=== PATIENT | female | born 1990 | race Hispanic/Latino ===

== ENCOUNTER 2017-06-04 19:47 | Emergency (ER) | payer SELFPAY ==
[2017-06-04] MEDS ORDERED: CEFTRIAXONE SODIUM 1 GM ONE (20:24)
[2017-06-04] MEDS ORDERED: LIDOCAINE HCL-MPF 1% 2ML VIAL ONE (20:24)
== END 2017-06-04 21:16 | disposition home or self-care (01) ==
LOC: EDH 19:47
DX: K08.89 Other specified disorders of teeth and supporting structures (principal)
CPT/HCPCS: 96372; 99283; J0696; J3490

== ENCOUNTER 2019-04-28 21:59 | Emergency (ER) | payer MEDICAID, OTHER ==
[2019-04-28 22:20] LABS: BASOPHILS % (AUTO) 0.6 % (0.0-5.0); EOSINOPHILS % (AUTO) 0.1 % (0.0-8.0); HEMATOCRIT 36.8 % (36-48); LYMPHOCYTES % (AUTO) 33.7 % (21.0-51.0); MEAN CORPUSCULAR HGB CONC 32.9 g/dL (32.0-36.0); MEAN CORPUSCULAR VOLUME 82.1 fL (79-99); MONOCYTES % (AUTO) 6.5 % (3.0-13.0); NEUTROPHILS % (AUTO) 58.7 % (40.0-77.0); PLATELET COUNT (AUTO) 323 K/uL (130-400); RED BLOOD CELL COUNT(AUTO) 4.48 MIL/uL (4.00-5.50); RED CELL DISTRIBUTION WIDTH 13.2 % (11.0-15.5); WHITE BLOOD COUNT (AUTO) 11.3 K/uL (4.8-10.8)
[2019-04-28 22:31] LABS: APPEARANCE,URINE Clear (CLEAR); BILIRUBIN,URINE Negative (NEGATIVE); COLOR,URINE Yellow (YELLOW); GLUCOSE, URINE (UA) Negative (NEGATIVE); KETONES,URINE Negative (NEGATIVE); LEUKOCYTE ESTERASE ,URINE Small (NEGATIVE); NITRATE,URINE Negative (NEGATIVE); OCCULT BLOOD,URINE Negative (NEGATIVE); PROTEIN,URINE Negative (NEGATIVE); UROBILINOGEN,URINE 0.2 mg/dL (0.2-1.0)
[2019-04-28 22:38] LABS: CREATININE 0.8 mg/dL (0.5-1.5); POTASSIUM 3.8 mmol/L (3.5-5.1)
[2019-04-28 22:40] LABS: AMPHET/METH SCREEN,URINE NEGATIVE (NEGATIVE); BARBITURATE SCREEN, URINE NEGATIVE (NEGATIVE); BENZODIAZEPINES SCREEN,URINE POSITIVE (NEGATIVE); CANNABINOID SCREEN,URINE NEGATIVE (NEGATIVE); COCAINE SCREEN,URINE POSITIVE (NEGATIVE); OPIATE SCREEN,URINE NEGATIVE (NEGATIVE); PHENCYCLIDINE SCREEN,URINE NEGATIVE (NEGATIVE)
[2019-04-28 22:41] LABS: ALBUMIN 4.1 g/dL (3.5-5.0); BILIRUBIN,TOTAL 0.3 mg/dL (0.2-1.0); TOTAL PROTEIN, SERUM 7.9 g/dL (6.0-8.3)
[2019-04-28 22:43] LABS: HCG,QUAL RESULT POSITIVE (NEGATIVE)
[2019-04-28 22:55] LABS: BACTERIA,URINE Rare /HPF (None Seen); MUCUS,URINE Few LPF (None Seen); RBC,URINE None Seen /HPF (0-1); SQUAMOUS EPITHELIAL CELL,UR Moderate /HPF (0-2)
== END 2019-04-29 01:03 | disposition home or self-care (01) ==
LOC: EDH 21:59
DX: O99.321 Drug use complicating pregnancy, first trimester (principal); F19.10 Other psychoactive substance abuse, uncomplicated; M54.5 Low back pain; Z3A.01 Less than 8 weeks gestation of pregnancy; Z72.0 Tobacco use
CPT/HCPCS: 36415; 76801; 80053; 80305; 81001; 81025; 84702; 85025

== ENCOUNTER 2019-09-21 11:50 | Observation (INO) | payer MEDICAID ==
[~2019-09-21] VITALS: Ht 160 cm; Wt 80.7 kg
[2019-09-21] MEDS ORDERED: CELESTONE SOLUSPAN 6 MG/ML 5ML VIAL IM SCH (12:30)
[2019-09-21 12:55] LABS: APPEARANCE,URINE Clear (CLEAR); BILIRUBIN,URINE Negative (NEGATIVE); COLOR,URINE Yellow (YELLOW); GLUCOSE, URINE (UA) Negative (NEGATIVE); KETONES,URINE Negative (NEGATIVE); LEUKOCYTE ESTERASE ,URINE Trace (NEGATIVE); NITRATE,URINE Negative (NEGATIVE); OCCULT BLOOD,URINE Negative (NEGATIVE); PROTEIN,URINE Negative (NEGATIVE)
[2019-09-21 13:01] LABS: BACTERIA,URINE Rare /HPF (None Seen); RBC,URINE 0-1 /HPF (0-1); SQUAMOUS EPITHELIAL CELL,UR Rare /HPF (0-2); WBC,URINE 0-1 /HPF (0-1)
[2019-09-21 14:19] LABS: HEMATOCRIT 30.4 % (36-48); MEAN CORPUSCULAR HEMOGLOBIN 29.2 pg (27.0-33.0); MEAN CORPUSCULAR HGB CONC 33.9 g/dL (32.0-36.0); MEAN CORPUSCULAR VOLUME 86.1 fL (79-99); RED BLOOD CELL COUNT(AUTO) 3.53 MIL/uL (4.00-5.50); WHITE BLOOD COUNT (AUTO) 10.7 K/uL (4.8-10.8)
[2019-09-21 14:33] LABS: AMPHET/METH SCREEN,URINE NEGATIVE (NEGATIVE); BARBITURATE SCREEN, URINE NEGATIVE (NEGATIVE); BENZODIAZEPINES SCREEN,URINE NEGATIVE (NEGATIVE); CANNABINOID SCREEN,URINE NEGATIVE (NEGATIVE); COCAINE SCREEN,URINE NEGATIVE (NEGATIVE); OPIATE SCREEN,URINE NEGATIVE (NEGATIVE); PHENCYCLIDINE SCREEN,URINE NEGATIVE (NEGATIVE)
[2019-09-21 14:53] LABS: CREATININE 0.6 mg/dL (0.5-1.5); POTASSIUM 3.8 mmol/L (3.5-5.1)
[2019-09-21 14:57] LABS: ALBUMIN 2.9 g/dL (3.5-5.0); BILIRUBIN,TOTAL 0.2 mg/dL (0.2-1.0)
== END 2019-09-21 15:15 | disposition home or self-care (01) ==
LOC: LDH 11:50
PROVIDERS: ADMIT Obstetrics & Gynecology; ATTEND Obstetrics & Gynecology
DX: O60.02 Preterm labor without delivery, second trimester (principal); Z3A.23 23 weeks gestation of pregnancy
CPT/HCPCS: 36415; 76805; 76857; 80053; 80305; 81001; 85027; 86701; 87390; 96372; G0378 ×3; J0702

== ENCOUNTER 2019-09-22 14:41 | Observation (INO) | payer MEDICAID ==
[~2019-09-22] VITALS: Ht 160 cm; Wt 58.1 kg
[2019-09-22] MEDS ORDERED: CELESTONE SOLUSPAN 6 MG/ML 5ML VIAL IM SCH (15:00)
== END 2019-09-22 15:16 | disposition home or self-care (01) ==
LOC: LDH 14:41
PROVIDERS: ADMIT Obstetrics & Gynecology; ATTEND Obstetrics & Gynecology
DX: Z34.92 Encounter for supervision of normal pregnancy, unspecified, second trimester (principal); Z3A.23 23 weeks gestation of pregnancy
CPT/HCPCS: 96372; G0378

== ENCOUNTER 2019-12-22 22:11 | Inpatient (IN) | payer MEDICAID ==
[~2019-12-22] VITALS: Ht 160 cm; Wt 69.9 kg
[2019-12-22] MEDS ORDERED: LACTATED RINGERS 1000ML 1,000 ML IV PRN (22:16)
[2019-12-22 22:58] LABS: APPEARANCE,URINE Clear (CLEAR); BILIRUBIN,URINE Negative (NEGATIVE); COLOR,URINE Yellow (YELLOW); GLUCOSE, URINE (UA) Negative (NEGATIVE); KETONES,URINE Negative (NEGATIVE); LEUKOCYTE ESTERASE ,URINE Large (NEGATIVE); NITRATE,URINE Negative (NEGATIVE); OCCULT BLOOD,URINE Moderate (NEGATIVE); PROTEIN,URINE Negative (NEGATIVE)
[2019-12-22 23:22] LABS: BACTERIA,URINE Few /HPF (None Seen)
[2019-12-23 00:10] LABS: HEMATOCRIT 32.2 % (36-48); MEAN CORPUSCULAR HEMOGLOBIN 29.7 pg (27.0-33.0); MEAN CORPUSCULAR HGB CONC 34.2 g/dL (32.0-36.0); RED BLOOD CELL COUNT(AUTO) 3.7 MIL/uL (4.00-5.50); RED CELL DISTRIBUTION WIDTH 12.7 % (11.0-15.5); WHITE BLOOD COUNT (AUTO) 9.8 K/uL (4.8-10.8)
[2019-12-23] MEDS ORDERED: OXYTOCIN-LR 20 UNITS/1000 ML 1,000 ML IV ONE (00:25)
[2019-12-23] MEDS ORDERED: MEPERIDINE-PF 50 MG/ML SYG ONE (02:12)
[2019-12-23] MEDS ORDERED: MEPERIDINE-PF 50 MG/ML SYG IVP PRN (02:15)
[2019-12-23] MEDS ORDERED: PROMETHAZINE HCL 25 MG/ML 1ML AMPULE IM PRN (02:15)
[2019-12-23] MEDS ORDERED: LIDOCAINE HCL 1% 20 ML VIAL ONE (03:46)
[2019-12-23] MEDS ORDERED: LANOLIN 30GM OINTMENT TP PRN (06:30)
[2019-12-23] MEDS ORDERED: DIPH,PERTUSS(ACELL),TET VAC/PF 0.5 ML VIAL IM PRN (06:30)
[2019-12-23] MEDS ORDERED: WITCH HAZEL 1 PAD TP PRN (06:30)
[2019-12-23] MEDS ORDERED: BENZOCAINE/LANOLIN/ALOE VERA 60 ML AEROSOL TP PRN (06:30)
[2019-12-23] MEDS ORDERED: ACETAMINOPHEN-CODEINE 300/30MG TAB PO PRN (06:30)
[2019-12-23] MEDS ORDERED: OXYTOCIN-LR 20 UNITS/1000 ML 1,000 ML IV SCH (06:30)
[2019-12-23] MEDS: IBUPROFEN 600 MG TABLET PO PRN ×2 (06:33→13:33)
[2019-12-23] MEDS ORDERED: OXYTOCIN 10 USP UNITS/ML 20 UNIT in LACTATED RINGERS 1000ML 1,000 ML IV SCH (07:00)
[2019-12-23 09:26] VITALS: BP 121/79
[2019-12-23] MEDS ORDERED: PNV1TABL17 PO (10:42)
[2019-12-23 11:30] VITALS: BP 133/82
[2019-12-23 16:17] VITALS: BP 139/79
[2019-12-23 19:41] VITALS: BP 109/70
[2019-12-23] MEDS: DOCUSATE SODIUM 100 MG CAP PO SCH ×2 (20:30→21:00)
[2019-12-24 00:07] VITALS: BP 119/77
[2019-12-24] MEDS: IBUPROFEN 600 MG TABLET PO PRN ×2 (01:10→09:15)
[2019-12-24 03:00] VITALS: BP 128/79
[2019-12-24 07:20] VITALS: BP 126/76
[2019-12-24] MEDS: DOCUSATE SODIUM 100 MG CAP PO SCH (09:14)
--- NOTE | 2019-12-24 10:30 | NUR ---
DR. HARTLEY CALLED AND INDICATED PATIENT COULD BE DISCHARGED AND FOLLOW UP IN CLINIC IN 2-3 WEEKS.
[2019-12-24 11:01] VITALS: BP 132/94
--- NOTE | 2019-12-24 11:10 | NUR ---
DISCHARGE INSTRUCTIONS GIVEN SINCE BABY IS DISCHARGED AND PATIENT WAS GIVE SCRIPT FOR COLACE AND MOTRIN AND INSTRUCTED TO CALL THURSDAY, FOR FOLLOW UP APPOINTMENT IN 2-3 WEEKS. VERBALIZED UNDERSTANDING INSTRUCTIONS GIVEN.
--- NOTE | 2019-12-24 12:05 | NUR ---
PATIENT WAS TAKEN VIA W/C CARRYING BABY IN ARMS AND TO FAMILY VEHICLE AND WAS DISCHARGED TO FAMILY IN STABLE CONDITION. PATIENT IS STABLE AND DENIES PAIN.
[2019-12-24 12:10] LABS: HEPATITIS Bs ANTIGEN SCREEN P Negative (Negative)
== END 2019-12-24 12:05 | disposition home or self-care (01) | DRG 560 ==
LOC: LDH 22:11 → WSH 12-23 09:21
PROVIDERS: ADMIT Obstetrics & Gynecology; ATTEND Obstetrics & Gynecology
PROC: 10E0XZZ Delivery of Products of Conception, External Approach (ICD-10-PCS; principal; 2019-12-23)
PROC: 0KQM0ZZ Repair Perineum Muscle, Open Approach (ICD-10-PCS; 2019-12-23)
PROC: 10907ZC Drainage of Amniotic Fluid, Therapeutic from Products of Conception, Via Natural or Artificial Opening (ICD-10-PCS; 2019-12-23)
PROC: 4A1HXCZ Monitoring of Products of Conception, Cardiac Rate, External Approach (ICD-10-PCS; 2019-12-23)
PROC: 3E0234Z Introduction of Serum, Toxoid and Vaccine into Muscle, Percutaneous Approach (ICD-10-PCS; 2019-12-23)
DX: O70.1 Second degree perineal laceration during delivery (principal); Z23 Encounter for immunization; Z37.0 Single live birth; Z3A.38 38 weeks gestation of pregnancy
CPT/HCPCS: 36415; 81001; 85027; 86592; 86850; 86900; 86901; 87088; 87340; G0378; J2175; J2590

== ENCOUNTER 2020-02-17 06:16 | Day surgery (SDC) | payer MEDICAID ==
[2020-02-14 16:03] LABS: BASOPHILS % (AUTO) 0.5 % (0.0-5.0); EOSINOPHILS % (AUTO) 0.6 % (0.0-8.0); HEMATOCRIT 36.6 % (36-48); LYMPHOCYTES % (AUTO) 40.3 % (21.0-51.0); MEAN CORPUSCULAR HEMOGLOBIN 28.2 pg (27.0-33.0); MEAN CORPUSCULAR HGB CONC 32.5 g/dL (32.0-36.0); MEAN CORPUSCULAR VOLUME 86.7 fL (79-99); NEUTROPHILS % (AUTO) 50.4 % (40.0-77.0); PLATELET COUNT (AUTO) 346 K/uL (130-400); RED BLOOD CELL COUNT(AUTO) 4.22 MIL/uL (4.00-5.50); WHITE BLOOD COUNT (AUTO) 8.3 K/uL (4.8-10.8)
[2020-02-16 10:07] VITALS: BP 116/69
[~2020-02-17] VITALS: Ht 162.6 cm; Wt 66.2 kg
[2020-02-17] VITALS (18 sets, daily range): BP systolic 125–140; BP diastolic 74–90
[~2020-02-17 06:16] MED LIST: CEFAZOLIN SODIUM 1 GM VIAL IVP SCH; PNV1TABL17 PO
[2020-02-17] MEDS ORDERED: LACTATED RINGERS 1000ML 1,000 ML IV ONE (06:24)
[2020-02-17] MEDS ORDERED: BUPIVACAINE/PF 0.25% 30ML VIAL IJ ONE (06:43)
[2020-02-17] MEDS ORDERED: SUCCINYLCHOLINE CHLORIDE 20 MG/ML 10 ML VIAL ONE (07:09)
[2020-02-17] MEDS ORDERED: LIDOCAINE PF 2% 5ML ABBOJECT ONE (07:09)
[2020-02-17] MEDS ORDERED: FENTANYL CITRATE PF 50 MCG/1 ML 2ML VIAL ONE (07:10)
[2020-02-17] MEDS ORDERED: ROCURONIUM 10MG/1ML SYR 10 MG/ML ML ONE (07:10)
[2020-02-17] MEDS ORDERED: PROPOFOL 10 MG/ML 20ML VIAL IV ONE (07:10)
[2020-02-17] MEDS ORDERED: MIDAZOLAM HCL 1 MG/ML 2ML VIAL ONE (07:25)
[2020-02-17] MEDS ORDERED: ESMOLOL HCL 10 MG/ML 10 ML VIAL ONE ×2 (08:11→08:47)
[2020-02-17] MEDS ORDERED: NEOSTIGMINE 5MG/5ML SYR IV ONE (08:16)
[2020-02-17] MEDS ORDERED: GLYCOPYRROLATE 1 MG/5 ML SYRINGE ONE (08:16)
[2020-02-17] MEDS ORDERED: ONDANSETRON HCL 4 MG/2 ML VIAL ONE ×3 (08:17→08:52)
[2020-02-17] MEDS ORDERED: KETOROLAC TROMETHAMINE 30MG/ML ONE (08:17)
[2020-02-17] MEDS ORDERED: MEPERIDINE-PF 25 MG/ML SYG ONE ×2 (08:34→08:45)
--- NOTE | 2020-02-17 09:30 | NUR ---
post received pt back from sx, s/p lab btl. pt awake and alert in bed,no distress noted. vs stable on arrival. dermabond incisions x 2 asymptomatic. one to belly button and 1 to suprapubic area. open to air. plan of care discuss with patient
--- NOTE | 2020-02-17 10:20 | NUR ---
dc pt dc home via wc,no distress noted. pt slightly nauseated. fully awake , pt accompanied by spouse.
== END 2020-02-17 10:20 | disposition home or self-care (01) ==
LOC: DAH 06:16
PROVIDERS: ATTEND Obstetrics & Gynecology
DX: Z30.2 Encounter for sterilization (principal); Z20.828 Contact with and (suspected) exposure to other viral communicable diseases; N81.4 Uterovaginal prolapse, unspecified; Z90.49 Acquired absence of other specified parts of digestive tract
CPT/HCPCS: 36415 ×2; 58671; 84703; 85025; 86850 ×2; 86900 ×2; 86901 ×2; A4264; A4351; A4606; A4930; C1769 ×2; G0168; J0330; J0690; J1885; J2001; J2175 ×2; J2250; J2405 ×3; J2704; J2710; J3010; J3490 ×3; J7120 ×2; U0003

== ENCOUNTER 2022-09-20 19:17 | Emergency (ER) | payer MEDICAID ==
[~2022-09-20] VITALS: Ht 160 cm; Wt 65.1 kg
[2022-09-20] MEDS ORDERED: KETOROLAC 15MG/ML VIAL (15MG/ML) IV ONE (20:00)
[2022-09-20] MEDS ORDERED: CYCLOBENZAPRINE HCL 10 MG TABLET PO ONE (20:00)
[2022-09-20 20:18] LABS: BASOPHILS % (AUTO) 0.7 % (0.0-5.0); EOSINOPHILS % (AUTO) 0.4 % (0.0-8.0); HEMATOCRIT 34.6 % (36-48); LYMPHOCYTES % (AUTO) 48.4 % (21.0-51.0); MEAN CORPUSCULAR HEMOGLOBIN 27.9 pg (27.0-33.0); MEAN CORPUSCULAR HGB CONC 33.8 g/dL (32.0-36.0); MEAN CORPUSCULAR VOLUME 82.4 fL (79-99); MONOCYTES % (AUTO) 5.9 % (3.0-13.0); NEUTROPHILS % (AUTO) 44.4 % (40.0-77.0); PLATELET COUNT (AUTO) 311 K/uL (130-400); RED CELL DISTRIBUTION WIDTH 12.2 % (11.0-15.5); WHITE BLOOD COUNT (AUTO) 8.9 K/uL (4.8-10.8)
[2022-09-20 20:26] LABS: CARBON DIOXIDE 29 mmol/L (21-32); CHLORIDE 101 mmol/L (101-111); CREATININE 0.7 mg/dL (0.5-1.5); GLOMERULAR FILTR. RATE CALC 118 mL/min (>90); GLUCOSE,RANDOM 90 mg/dL (70-105); POTASSIUM 3.5 mmol/L (3.5-5.1); SODIUM SERUM 136 mmol/L (136-145); UREA NITROGEN, BLOOD 13 mg/dL (7-18)
[2022-09-20 20:27] LABS: APPEARANCE,URINE CLEAR (CLEAR); BILIRUBIN,URINE NEGATIVE (NEGATIVE); COLOR,URINE LIGHT-YELLOW (YELLOW); GLUCOSE, URINE (UA) NEGATIVE (NEGATIVE); KETONES,URINE NEGATIVE (NEGATIVE); LEUKOCYTE ESTERASE ,URINE NEGATIVE Leu/uL (NEGATIVE); NITRATE,URINE NEGATIVE (NEGATIVE); OCCULT BLOOD,URINE NEGATIVE (NEGATIVE); PH,URINE 6.5 (5.0-8.0); PROTEIN,URINE NEGATIVE (NEGATIVE); UROBILINOGEN,URINE 0.2 mg/dL (0.2-1.0)
[2022-09-20 20:30] LABS: BACTERIA,URINE RARE /HPF (None Seen); HCG,QUALITATIVE URINE NEGATIVE (NEGATIVE); MUCUS,URINE RARE LPF (None Seen); SQUAMOUS EPITHELIAL CELL,UR RARE /HPF (0-2)
[2022-09-20 20:30] LABS: ALANINE AMINOTRANSFERASE 19 U/L (12-78); ALBUMIN 3.9 g/dL (3.5-5.0); ASPARTATE AMINOTRANSFERASE 13 U/L (10-37); TOTAL PROTEIN, SERUM 7.4 g/dL (6.0-8.3)
[2022-09-20 20:32] LABS: CRP QUANTITATIVE < 2.00 mg/L (0.00-9.0)
[2022-09-20 20:44] LABS: AMPHET/METH SCREEN,URINE NEGATIVE (NEGATIVE); BARBITURATE SCREEN, URINE NEGATIVE (NEGATIVE); BENZODIAZEPINES SCREEN,URINE POSITIVE (NEGATIVE); CANNABINOID SCREEN,URINE NEGATIVE (NEGATIVE); COCAINE SCREEN,URINE NEGATIVE (NEGATIVE); OPIATE SCREEN,URINE NEGATIVE (NEGATIVE); PHENCYCLIDINE SCREEN,URINE NEGATIVE (NEGATIVE)
[2022-09-20] MEDS ORDERED: DiphenhydrAMINE HCL 50 MG/ML VIAL IV ONE (22:00)
[2022-09-20] MEDS ORDERED: DIPHENHYDRAMINE HCL 25 MG CAPSULE PO ONE (22:00)
[2022-09-20] MEDS ORDERED: IBUP-1493 PO (22:08)
[2022-09-20] MEDS ORDERED: HYDR50CA PO (22:08)
[2022-09-20 22:27] VITALS: BP 127/62
== END 2022-09-20 22:30 | disposition home or self-care (01) ==
LOC: EDH 19:17
DX: F41.9 Anxiety disorder, unspecified (principal); M79.10 Myalgia, unspecified site; M79.605 Pain in left leg
CPT/HCPCS: 99285; 96374; 70450; 80053; 80305; 85025; 86038; 86140; 81025; 36415; 72100; 81001; Q0163; J1885; 96372

== ENCOUNTER 2023-06-13 21:52 | Emergency (ER) | payer BC, MEDICAID ==
[~2023-06-13] VITALS: Ht 160 cm; Wt 63.5 kg
[~2023-06-13 21:52] MED LIST changes: -CEFAZOLIN SODIUM 1 GM VIAL IVP SCH; +HYDR50CA PO; +IBUP-1493 PO; -PNV1TABL17 PO
[2023-06-13 22:40] LABS: BASOPHILS # (AUTO) 0.03 K/uL (0.00-0.20); BASOPHILS % (AUTO) 0.3 % (0.0-5.0); EOSINOPHILS # (AUTO) 0.05 K/uL (0.00-0.70); EOSINOPHILS % (AUTO) 0.5 % (0.0-8.0); HEMATOCRIT 34.2 % (36-48); IMMATURE GRANULOCYTE ABSOLUTE 0.03 K/uL (0-1); LYMPHOCYTES # (AUTO) 4.1 K/uL (1.0-4.8); LYMPHOCYTES % (AUTO) 42.4 % (21.0-51.0); MEAN CORPUSCULAR HEMOGLOBIN 28.1 pg (27.0-33.0); MEAN CORPUSCULAR HGB CONC 33.6 g/dL (32.0-36.0); MEAN CORPUSCULAR VOLUME 83.6 fL (79-99); MONOCYTES # (AUTO) 0.9 K/uL (0.1-1.0); MONOCYTES % (AUTO) 8.8 % (3.0-13.0); NEUTROPHILS # (AUTO) 4.6 K/uL (1.8-7.7); NEUTROPHILS % (AUTO) 47.7 % (40.0-77.0); PLATELET COUNT (AUTO) 297 K/uL (130-400); RED BLOOD CELL COUNT(AUTO) 4.09 MIL/uL (4.00-5.50); RED CELL DISTRIBUTION WIDTH 12.6 % (11.0-15.5); WHITE BLOOD COUNT (AUTO) 9.7 K/uL (4.8-10.8)
[2023-06-13 22:42] LABS: APPEARANCE,URINE CLEAR (CLEAR); BILIRUBIN,URINE NEGATIVE (NEGATIVE); COLOR,URINE LIGHT-YELLOW (YELLOW); GLUCOSE, URINE (UA) NEGATIVE (NEGATIVE); KETONES,URINE NEGATIVE (NEGATIVE); LEUKOCYTE ESTERASE ,URINE NEGATIVE Leu/uL (NEGATIVE); NITRATE,URINE NEGATIVE (NEGATIVE); OCCULT BLOOD,URINE NEGATIVE (NEGATIVE); PH,URINE 6.5 (5.0-8.0); PROTEIN,URINE NEGATIVE (NEGATIVE); UROBILINOGEN,URINE 0.2 mg/dL (0.2-1.0)
[2023-06-13 22:43] LABS: HCG,QUALITATIVE URINE NEGATIVE (NEGATIVE)
[2023-06-13 22:44] LABS: ADD UA MICROSCOPIC NO
[2023-06-13 22:51] LABS: CREATININE 0.9 mg/dL (0.5-1.5); POTASSIUM 3.7 mmol/L (3.5-5.1)
[2023-06-13 22:55] LABS: ALBUMIN 3.7 g/dL (3.5-5.0); BILIRUBIN,TOTAL 0.2 mg/dL (0.2-1.0); TOTAL PROTEIN, SERUM 7.4 g/dL (6.0-8.3)
[2023-06-14] MEDS ORDERED: POLY17PO4 PO (02:08)
[2023-06-14] MEDS: MAGNESIUM HYDROXIDE 30 ML/UDCUP PO SCH (02:25)
[2023-06-14 02:40] VITALS: BP 121/71; PULSE 91; RESP 16; O2SAT 100
== END 2023-06-14 02:40 | disposition home or self-care (01) ==
LOC: EDH 21:52
DX: R10.13 Epigastric pain (principal); K59.00 Constipation, unspecified; F41.9 Anxiety disorder, unspecified; Z90.49 Acquired absence of other specified parts of digestive tract
CPT/HCPCS: 36415; 71045; 74176; 76705; 80053; 81003; 81025; 83690; 84484; 85025; 93005

== ENCOUNTER 2024-07-23 09:20 | Emergency (ER) | payer BC ==
[~2024-07-23] VITALS: Ht 160 cm; Wt 63.5 kg
[~2024-07-23 09:20] MED LIST changes: +POLY17PO4 PO
[2024-07-23 09:22] VITALS: BP 124/85; PULSE 110; RESP 18; TEMP 99.4; O2SAT 98
[2024-07-23 10:08] LABS: RAPID GROUP A STREP negative (NEGATIVE)
[2024-07-23 10:12] LABS: SARS-CoV-2, RNA, NAAT NEGATIVE SARS CoV-2 (NEGATIVE)
[2024-07-23 10:18] LABS: INFLUENZA TYPE A Negative For Type A (NEGATIVE)
[2024-07-23 11:21] LABS: INFLUENZA TYPE B Positive For Type B (NEGATIVE)
[2024-07-23] MEDS ORDERED: ACET-66 PO (11:48)
[2024-07-23] MEDS ORDERED: OSEL75 PO (11:48)
--- NOTE | 2024-07-23 11:48 | ERN ---
General Chief Complaint: Influenza Stated Complaint: FLU SYMPTOMS X 4 DAYS Time Seen by MD: 09:22 Source: patient History of Present Illness Initial Comments Patient is a 33-year-old female coming in to be evaluated for URI symptoms. Per patient she feels as he has she has a flu her son was experiencing similar symptoms with diagnosed with the flu a week and a half ago he finished the Tamiflu. Allergies: Coded Allergies: No Known Allergies (Unverified Allergy, Unknown, 09/21/19) Home Meds Active Scripts Polyethylene Glycol 3350 (Miralax) 17 Gram Powd.pack, 17 GM PO DAILY PRN for CONSTIPATION, #10 DOSE Prov:TRAM WILLIAMSON MD 06/14/23 Hydroxyzine Pamoate (Vistaril) 50 Mg Capsule, 50 MG PO Q6HPRN PRN for anxiety, #15 CAP Prov:OLI WINTER MD 09/20/22 Ibuprofen (Motrin/Advil) 800 Mg Tab, 800 MG PO Q8H, #12 TAB Prov:OLI WINTER MD 09/20/22 Past Medical History Past Medical History: Anxiety Past Surgical History: Appendectomy, BTL Family History Family History: Negative Social History Social History: Negative, Lives with family Female( History) LMP: Jul 11, 2024 ROS Dictation CONSTITUTIONAL: chills, no fever, no weakness, no diaphoresis, no malaise. HEAD/FACE: No signs of trauma. EENT: No eye pain, no blurred vision, no tearing, no double vision, no ear pain, no ear discharge, no nose pain, no nasal congestion, no throat pain, no throat swelling, no mouth pain. RESPIRATORY: No cough, no orthopnea, no SOB, no stridor, no wheezing. CARDIOVASCULAR: No chest pain, no edema, no palpitations, no syncope. GASTROINTESTINAL/ABDOMINAL: No abdominal pain, no constipation, no diarrhea, no nausea, no vomiting. GENITOURINARY: No abnormal discharge, no dysuria, no frequent urination, no hematuria. No complaints of pain in the genitals. MUSCULOSKELETAL: No back pain, no gout, no joint pain, no joint swelling, no muscle pain, no muscle stiffness, no neck pain. INTEGUMENTARY: No change in color, no change in hair/nails, no dryness, no lesion, no lumps, no rash. NEUROLOGICAL/PSYCH: No anxiety, not depressed, no emotional problem, no headache, no numbness, no pre-existing deficit, no history of seizures, no tremors, no weakness. HEMATOLOGIC/LYMPHATIC: Not anemic, no history of blood clots, no apparent bleeding, no bruising, glands not swollen. All Systems Negative, Except as Noted. Physical Exam Physical Exam Dictation VITAL SIGNS: Reviewed. GENERAL APPEARANCE: Alert, oriented x3, no acute distress, obese. HEAD AND FACE: Non-traumatic. EYES: PERRL, pink conjunctivas, eyelid no trauma, anterior chamber clear. EARS: Pinnas intact and no signs of trauma or erythema. Ear canals clear and no discharge. TMs no erythema. NOSE: No discharge, no bleeding. OROPHARYNX: Mouth normal, teeth no caries, tongue pink. Pharynx clear, no erythema. Tonsils no exudates, no abscesses noted. Mucous membrane moist. NECK: Supple, non-tender, no thyromegaly, no masses, no JVD, no bruits. BREAST: Deferred. CHEST: No tenderness, no crepitus, no paradoxical movement, no retractions. LUNGS: Clear, well-ventilated, symmetric, no rales, no wheezing, no rhonchi, no stridor, good breath sounds bilaterally. HEART: Regular rate, regular rhythm, no murmur, no gallops. VASCULAR: No peripheral edema. ABDOMEN: Soft, positive bowel sounds, nondistended, no guarding, nontender, no rebound, no masses no hepatomegaly, no splenomegaly, no Han's sign, no hernias. RECTAL: Deferred. GENITAL: Deferred. NEUROLOGICAL: Normal speech, gross motor function intact, gross sensory function intact. MUSCULOSKELETAL: Neck nontender, full range of motion, back nontender, full range of motion. EXTREMITIES: Nontender, full range of motion. SKIN: Color pink, dry, no turgor, no rash, no lacerations, no abrasions, no c ontusions. LYMPHATICS: Deferred. Results Laboratory and Microbiology Lab and Micro Result Laboratory Tests Test 07/23/24 09:49 Influenza Type A Antigen Negative For Type A Influenza Type B Antigen Positive For Type B SARS-CoV-2, RNA, NAAT NEGATIVE SARS CoV-2 Group A Streptococcus Rapid negative (NEGATIVE) Labs Reviewed?: Yes MDM MDM: Differential diagnosis: COVID, flu, strep Patient is a 33-year-old female coming in to be evaluated for URI symptoms. Per patient she was exposed to the flu a week and a half ago but has been having these symptoms for days. Laboratory workup positive for influenza B. Patient will be discharged with a diagnosis of flu B medication will be provided for symptomatic relief and Tamiflu as well. ED Course Orders Procedure Category Date Status Time Covid Rna Naat LAB 07/23/24 Complete 09:24 Influenza Type A & B, LAB 07/23/24 Complete Rapid 09:24 Rapid (Group A Strep) LAB 07/23/24 Complete 09:24 Acetaminophen 325 Tab PHA 07/23/24 Verified (Tylenol 325mg Tab 12:00 Vital Signs Date Time Temp Pulse Resp B/P (MAP) Pulse Ox O2 Delivery O2 Flow Rate FiO2 07/23/24 09:22 99.3 110 18 124/85 98 Room Air* 0 21 07/23/24 09:22 99.3 110 18 124/85 98 Room Air 0 DX & DISP Disposition: Discharge Departure Impression: Primary Impression: Influenza B Condition: Stable Scripts Acetaminophen (Tylenol) 500 Mg Tab 1 TAB PO Q6HPRN PRN for pain or fever for 5 Days, #30 TAB 0 Refills Prov: ALIS ALBERTS MD 07/23/24 Oseltamivir Phosphate (Tamiflu) 75 Mg Cap 1 CAP PO BID for 5 Days, #10 CAP 0 Refills Prov: ALIS ALBERTS MD 07/23/24 Additional Instructions: FOLLOW-UP WITH PRIMARY CARE PROVIDER IN 1 TO 2 DAYS. TAKE MEDICATIONS DIRECTED HERE IN THE EMERGENCY ROOM. OKAY TO CONTINUE HOME MEDICATIONS UNLESS OTHERWISE DISCUSSED DURING YOUR VISIT IN THE EMERGENCY ROOM TODAY. RETURN TO YOUR NEAREST EMERGENCY ROOM IF SYMPTOMS WORSEN OR IF THERE IS NO IMPROVEMENT. CALL 911 IF YOU NEED IMMEDIATE ASSISTANCE. TAKE TYLENOL [id number] NEEDED AND IF NO CONTRAINDICATIONS ARE PRESENT. INCREASE ORAL HYDRATION. A WOUND CULTURE OR URINE CULTURE WAS ORDERED HERE IN THE EMERGENCY ROOM DEPARTMENT PLEASE FOLLOW-UP WITH PRIMARY CARE PROVIDER AND ADVISE THEM TO GET REPEAT PORTS FROM OUR FACILITY. IF YOU HAD ANY MOISES WRAP/SPLINTS THAT WERE APPLIED HERE, PLEASE DO NOT REMOVE THEM UNTIL YOU SEE YOUR PRIMARY CARE OR SPECIALTY. Referrals: Referrals: NONE (PCP) FRANCISCO LR MD Time of Disposition: 11:47 ALIS ALBERTS MD Jul 23, 2024 11:48
[2024-07-23] MEDS: acetaMINOPHEN 325 MG TAB PO ONE (11:49)
[2024-07-23] MEDS: acetaMINOPHEN 325 MG TAB ONE (11:51)
--- NOTE | 2024-07-23 11:58 | NUR ---
patient verbalized "needing an injection" at this time. educated patient on the differences between a vrial and bacterial infection. patient upset. verbalized understandin of dc instructiobs
== END 2024-07-23 12:02 | disposition home or self-care (01) ==
LOC: EDH 09:20
DX: J10.1 Influenza due to other identified influenza virus with other respiratory manifestations (principal); F41.9 Anxiety disorder, unspecified; Z90.49 Acquired absence of other specified parts of digestive tract; Z98.51 Tubal ligation status; Z20.822 Contact with and (suspected) exposure to COVID-19
CPT/HCPCS: 87635; 87804; 87880; 99283